=== PATIENT | male | born 1985 | race African-American/Black ===

== ENCOUNTER 2021-05-04 15:19 | Emergency (ER) | payer OTHER ==
[~2021-05-04] VITALS: Ht 182.9 cm; Wt 74.8 kg
--- NOTE | 2021-05-04 15:45 | NUR ---
BIBS FOR C/O RIGHT ANKLE PAIN, INJURED WHILE PLAYING BASKETBALL THIS MORNING. RATES PAIN 5/10. WILL CONTINUE TO MONITOR THE PATIENT.
[2021-05-04] MEDS ORDERED: IBUP-1955 PO (16:07)
[2021-05-04] MEDS ORDERED: OXYC5CAP18 PO (16:07)
[2021-05-04] MEDS ORDERED: oxyCODONE HCL SR 10MG TAB.SR.12H PO SCH (17:00)
--- NOTE | 2021-05-04 17:00 | NUR ---
OXYCODONE 5 MG PO ONCE PER DR AKINS. THE ORDER IS READ BACK, VERIFIED. NOTED AND CARRIED OUT.
[2021-05-04] MEDS ORDERED: oxyCODONE IR immediate release 5 MG ONE (17:04)
--- NOTE | 2021-05-04 17:41 | NUR ---
Patient discharged to home in stable condition. Written and verbal after care instructions given. Patient verbalizes understanding of instruction. The patient is picked up by a friend on a private car.
[2021-05-04 17:42] VITALS: BP 123/72
== END 2021-05-04 17:42 | disposition home or self-care (01) ==
LOC: ER 15:23
DX: S96.811A Strain of other specified muscles and tendons at ankle and foot level, right foot, initial encounter (principal); M79.661 Pain in right lower leg; Z60.2 Problems related to living alone; Z79.899 Other long term (current) drug therapy; X58.XXXA Exposure to other specified factors, initial encounter; Y93.67 Activity, basketball; Y92.310 Basketball court as the place of occurrence of the external cause; Y99.8 Other external cause status
CPT/HCPCS: 73610-TC